=== PATIENT | male | born 1980 | race Asian ===

== ENCOUNTER → 2024-06-27 | Outpatient (CLI) | payer OTHER, SELFPAY ==
--- NOTE | 2024-06-27 08:00 | XR_ITS ---
Examination: MRI lumbar spine without contrast Date and time of exam: June 27, 2024 0750 hours INDICATIONS: Lower back pain radiating to both legs beginning 6 months ago Technique: Multiple MRI axial and sagittal sections lumbar spine. Sagittal T2-weighted images, TR 3500, TE 118 T1 weighted transverse sections, TR 688 T8.5, T2-weighted sagittal sections T1 weighted sagittal sections TR 621, TE 30 T2 axial sections, TR 4, 190, TE 84. Findings: Adequate alignment lumbar vertebral bodies on the lateral view No lumbar fracture Mild disc narrowing L4-L5 with disc desiccation No spondylolisthesis L5-S1 2 mm right paracentral disc bulge L4-L5 partially extruded large, 8mm central left paracentral disc severely indenting the thecal sac More cephalad levels unremarkable IMPRESSION: L4-L5 partially extruded large, 8mm, central left paracentral disc severely indenting the thecal sac
== END | disposition home or self-care (01) ==
PROVIDERS: PCP Family Medicine; Referring Provider Family Medicine; Visit Provider Family Medicine
DX: M51.26 Other intervertebral disc displacement, lumbar region (principal)
CPT/HCPCS: 72148